=== PATIENT | male | born 1965 | race Two or more races ===

== ENCOUNTER 2016-06-27 14:47 | Emergency (ER) | payer MEDICARE ==
--- NOTE | ~2016-06-27 | ER ---
PATIENT'S NAME: LUIS OVERTON [facility] AGE: 51 Y [address] ROOM: [place] [address] LOCATION: ED ADMIT DATE: 06/27/2016 ER/Outpatient Report DISCHARGE DATE: 06/27/2016 FAMILY PHYSICIAN: , NO ATTENDING PHYSICIAN: Filiberto Lunsford Time of Arrival: 1447 hours. Time of Evaluation: 1447 hours. CHIEF COMPLAINT: Chest pain. HISTORY OF PRESENT ILLNESS: The patient is a 51-year-old male who presents to the emergency department today with a chief complaint of chest pain. He reports this started at 7 p.m. last night. It is a pinching-type pain on the left side of his chest. There is no shortness of breath. He does report he feels like his lips are dry. He is not having any nasal congestion and nasal drainage. He does have a nonproductive cough. Denies any fevers, does have some chills, does have some nausea. No vomiting. Denies any radiation of this chest pain. No ripping or tearing sensation. He is visiting his daughter from [place]. He reports he is diabetic, but has not been taking his medicines. PAST MEDICAL HISTORY: Igk-nrhreei-nbicxdihf diabetes, hypertension, gastroparesis. PAST SURGICAL HISTORY: Colonoscopy and endoscopy. SOCIAL HISTORY: The patient denies any tobacco use. Reports occasional alcohol use. Denies illicit drug use. ALLERGIES: NO KNOWN DRUG ALLERGIES. MEDICATIONS: 1. Omeprazole, he is supposed to be on diabetic. 2. Medications, but he has not seen his doctor to get his medications refilled. PRIMARY CARE DOCTOR: In [place]. ROS: PATIENT'S NAME: LUIS OVERTON [facility] AGE: 51 Y [address] ROOM: [place] [address] LOCATION: ED ADMIT DATE: 06/27/2016 ER/Outpatient Report DISCHARGE DATE: 06/27/2016 FAMILY PHYSICIAN: PHYSICIAN, MELODY ATTENDING PHYSICIAN: Filiberto Lunsford All systems are reviewed by myself and are negative with the exception of those discussed in HPI and past medical history. PHYSICAL EXAMINATION: VITAL SIGNS: Weight 81.3 kg, blood pressure 157/95, pulse 84, respiratory rate 18, temperature 97.7, oxygen saturation 99% on room air. GENERAL: The patient is a 51-year-old male, appears stated age, in no acute distress at this time. HEENT: Head: Normocephalic, atraumatic. Pupils are equal, round, and reactive to light and accommodating. Mucous membranes are moist. NECK: Supple. There is no nuchal rigidity. CARDIOVASCULAR: Regular rate and rhythm. No murmurs, rubs, or gallops. LUNGS: Clear to auscultation bilaterally. No wheezes, rales, or rhonchi. ABDOMEN: Soft, nontender, and nondistended. No rebound, rigidity, or guarding. MUSCULOSKELETAL: The patient moves all 4 extremities. SKIN: Warm and dry. LABORATORY DATA AND X-RAYS: EKG is obtained, is interpreted by myself at 1509 hours, shows sinus rhythm with a rate of 80, left axis deviation, normal interval. No ST elevation, ST depression, T-wave inversions. A 2-view chest x-ray shows no acute process. CBC is normal. D-dimer is normal. Coags are normal. Magnesium is normal. CK is normal. CK-MB is unremarkable. Troponin was normal. CMP is unremarkable except for glucose 464. LFTs are normal. BNP is normal. Repeat 2-hour EKG shows sinus rhythm with a rate of 60, left axis deviation, normal interval. No ST elevation, ST depression, or T-wave inversions. A 2-hour cardiac enzymes are normal. IMPRESSION: 1. Chest pain, unclear etiology. Suspect musculoskeletal. 2. Elevated glucose and medical noncompliance. 3. Initial visit. EMERGENCY DEPARTMENT COURSE: The patient was brought back to the examination room. Seen and evaluated by myself. IV is established. Laboratory analysis and imaging are obtained as described above. The patient's CO2 is unremarkable, normal. He does have elevated glucose. We did give the patient 8 units of insulin subcutaneous. He was given a liter of normal saline. He was given 4 mg of Zofran, 50 mg of Toradol, as well as a GI cocktail. This resulted in improvement in the patient's symptoms. The patient is chest pain-free. He does have tenderness to palpation along the anterior chest wall on the left side. His 2-hour cardiac enzymes and EKG are unchanged. I do feel he is safe for outpatient evaluation. I have written a prescription for metformin for him as he does PATIENT'S NAME: LUIS OVERTON [facility] AGE: 51 Y [address] ROOM: [place] [address] LOCATION: [facility] ADMIT DATE: 06/27/2016 ER/Outpatient Report DISCHARGE DATE: 06/27/2016 FAMILY PHYSICIAN: PHYSICIAN, NO ATTENDING PHYSICIAN: Filiberto Lunsford not have his prescriptions here. He does report he has taken this in the past. I have discussed. I would like him to follow up with the clinic in 2-3 days for further evaluation and treatment. We discussed the different options here in [place]. DISPOSITION: The patient is discharged home in good condition. DO GRECIA RAI/modl /[id number] d: 06/28/16804 t: 07/07/16 192, OUTPATIENT REPORT
[2016-06-27 15:11] LABS: BASOPHIL % 0.7 %; EOSINOPHIL # 0.2 K/uL (0.0-0.5); HEMATOCRIT 41.9 % (37.0-53.0); HEMOGLOBIN 14.3 g/dL (12.0-17.0); IMMATURE GRANULOCYTE % 0.2 %; LYMPHOCYTE # 1.1 K/uL (0.8-4.0); LYMPHOCYTE % 23.5 %; MCH 29.7 pg (27.0-34.0); MCHC 34.1 gm/dL (32.0-36.5); MCV 86.9 fl (83.0-98.0); MONOCYTE # 0.4 K/uL (0.0-1.0); MPV 11.7 fl (9.4-12.4); NEUTROPHIL # (ANC) 2.9 K/uL (1.4-9.0); NEUTROPHIL % 63.6 %; NRBC % 0 /100WBC (0-0.00); PLATELET COUNT 167 K/uL (150-450); RBC 4.82 M/uL (4.00-6.00); RDW-CV 12.4 % (11.9-14.6); WBC 4.5 K/uL (4.0-11.0)
[2016-06-27 15:23] LABS: INR - (THERAPEUTIC) 0.9 (0.9-1.1); PROTIME 9.7 SECONDS (9.6-11.1); PTT 23 SECONDS (25-32)
[2016-06-27 15:30] LABS: ALBUMIN 3.7 gm/dL (3.5-5.0); ALK PHOS 68 IU/L (33-138); ALT 30 IU/L (12-78); ANION GAP 11.1 (10.0-19.0); AST 16 IU/L (10-40); BLOOD UREA NITROGEN 17 mg/dL (6-24); CALCIUM 8.5 mg/dL (8.5-10.5); CHLORIDE 98 mMol/L (96-110); CO2 28 mMol/L (22-32); CPK 226 IU/L (35-332); CREATININE 0.9 mg/dL (0.6-1.3); ESTIMATED GFR (MDRD EQUATION) > 60; MAGNESIUM 2.2 mg/dL (1.3-2.6); POTASSIUM 4.1 mMol/L (3.7-5.1); SODIUM 133 mMol/L (135-145); TOTAL BILIRUBIN 0.4 mg/dL (0.0-1.5); TOTAL PROTEIN 7.6 g/dL (6.0-8.4)
[2016-06-27 17:31] LABS: CPK 169 IU/L (35-332)
== END 2016-06-27 18:14 | disposition disaster alternative care site (69) ==
LOC: GMED 14:47
PROVIDERS: Emergency Medicine
DX: R07.9 Chest pain, unspecified (principal); E11.9 Type 2 diabetes mellitus without complications; I10 Essential (primary) hypertension; Z91.14 Patient's other noncompliance with medication regimen
CPT/HCPCS: J1885; J2405; J7030

== ENCOUNTER 2016-07-11 17:30 | Emergency (ER) | payer MEDICARE ==
--- NOTE | ~2016-07-11 | ER ---
PATIENT'S NAME: TIAN FRANCE [facility] AGE: 51 Y [address] ROOM: [place] [address] LOCATION: ED ADMIT DATE: 07/11/2016 ER/Outpatient Report DISCHARGE DATE: 07/11/2016 FAMILY PHYSICIAN: PHYSICIAN, NO ATTENDING PHYSICIAN: Renan Stephens TIME OF ARRIVAL: 1737 hours. TIME OF EXAM: 1737 hours. CHIEF COMPLAINT: Back pain. HISTORY OF PRESENT ILLNESS: The patient states he has a burning-type back pain across his lower back and flank area also past. It started on both sides yesterday, but today it has kind of settled into the right flank area. It is a burning sensation and kind of goes down into the right hip and legs. He states he has had problems like this before when he has had gastritis. He states that he has had some chronic problems with GI tract. Does not have any pain with urination, but does sometimes have pain with stooling. He has not noticed any blood. ALLERGIES: HE HAS NO KNOWN ALLERGIES. CURRENT MEDICATIONS: Current medications are on his chart and reviewed by me. PAST MEDICAL HISTORY: Gastritis, stroke, and tpq-mdwynic-uzaooglnw diabetes. PAST SURGERIES: Multiple colonoscopies and endoscopies. SOCIAL HISTORY: He is here visiting family. Denies use of tobacco, drugs, or alcohol. REVIEW OF SYSTEMS: All negative other than those mentioned in the HPI. PHYSICAL EXAMINATION: VITAL SIGNS: He weighed 78 kg, blood pressure is 97/69, pulse of 92, respirations 16, temp of 99.3, and O2 sat is 96% on room air. PATIENT'S NAME: TIAN FRANCE [facility] AGE: 51 Y [address] ROOM: [place] [address] LOCATION: [facility] ADMIT DATE: 07/11/2016 ER/Outpatient Report DISCHARGE DATE: 07/11/2016 FAMILY PHYSICIAN: PHYSICIAN, NO ATTENDING PHYSICIAN: Renan Stephens GENERAL: He is awake, alert, and oriented x4. SKIN: [place], warm, and dry. RESPIRATIONS: Even and nonlabored. Lung sounds are clear throughout. HEART: Regular rate and rhythm. ABDOMEN: Soft, nondistended. Bowel sounds are present. He is tender in the right flank area. He walks in with a steady even gait. LABORATORY DATA: Clean-catch UA was obtained. It does show some blood. I did CT scan of the abdomen and pelvis, stone protocol, radiologist reports it is within normal limits. CBC shows a white count of 7.6, hemoglobin is 14.4 with hematocrit of 41.6. Chem panel: Sodium is 136, potassium is 4.2, chloride 106, glucose is 248, BUN is 22 with a creatinine 0.7, and amylase is 52 with a lipase of 388. EMERGENCY DEPARTMENT COURSE: The patient was given [place] 5/325 x2 tablets and Zofran 4 mg ODT. IMPRESSION: Back pain. PLAN: Home, rest, and fluids. He has [place] at home to take for pain. If his symptoms persist or worsen, he is to follow up with their primary provider in the next 2-3 days or return to the ER. He verbalized understanding. JERED LINDO APRN FOR MD CHRISTIANO PEARCE/ana /[id number] d: 07/12/16150 t: 07/20/16 1212, OUTPATIENT REPORT
[2016-07-11 18:05] LABS: BLOOD URINE 10 /UL (NEGATIVE); GLUCOSE URINE 1000 mg/dL (NEGATIVE); KETONE URINE 5 mg/dL (NEGATIVE); LEUKOCYTES URINE 25 /UL (NEGATIVE); NITRITE URINE NEGATIVE (NEGATIVE); PROTEIN URINE 100 mg/dL (NEGATIVE); TURBIDITY URINE 3+ (CLEAR); UROBILINOGEN URINE 4 mg/dL (NORMAL)
[2016-07-11 18:06] LABS: COLOR URINE AMBER (YELLOW)
[2016-07-11 18:15] LABS: BACTERIA URINE FEW (NEGATIVE); MUCUS URINE 3+ (NEGATIVE); RBC URINE 0-2 #/HPF (NEGATIVE); RENAL EPITH URINE 0-2 #/HPF (NEGATIVE)
[2016-07-11 18:16] LABS: SPERM URINE 0-2 #/HPF (NEGATIVE)
[2016-07-11 18:38] LABS: HEMATOCRIT 41.6 % (37.0-53.0); HEMOGLOBIN 14.4 g/dL (12.0-17.0); MCH 29.6 pg (27.0-34.0); MCHC 34.6 gm/dL (32.0-36.5); MCV 85.6 fl (83.0-98.0); MPV 11.8 fl (9.4-12.4); PLATELET COUNT 146 K/uL (150-450); RBC 4.86 M/uL (4.00-6.00); RDW-CV 12.4 % (11.9-14.6); WBC 7.6 K/uL (4.0-11.0)
[2016-07-11 18:58] LABS: ALBUMIN 3.1 gm/dL (3.5-5.0); ALK PHOS 53 IU/L (33-138); ALT 29 IU/L (12-78); ANION GAP 9.2 (10.0-19.0); AST 21 IU/L (10-40); BLOOD UREA NITROGEN 22 mg/dL (6-24); CHLORIDE 106 mMol/L (96-110); CO2 25 mMol/L (22-32); CREATININE 0.7 mg/dL (0.6-1.3); ESTIMATED GFR (MDRD EQUATION) > 60; POTASSIUM 4.2 mMol/L (3.7-5.1); SODIUM 136 mMol/L (135-145); TOTAL PROTEIN 6.6 g/dL (6.0-8.4)
[2016-07-11 19:00] LABS: CALCIUM 7.3 mg/dL (8.5-10.5); TOTAL BILIRUBIN 0.6 mg/dL (0.0-1.5)
[2016-07-11 19:05] LABS: ABSOLUTE NEUTROPHIL CT (ANC) 7.1 K/uL (1.4-9.0); LYMPHOCYTE # 0.1 K/uL (0.8-4.0); LYMPHOCYTE % 1 %; MONOCYTE # 0.3 K/uL (0.0-1.0); SEGMENTED NEUTROPHIL # 7.1 K/uL (1.4-9.0); SEGMENTED NEUTROPHIL % 94 %
== END 2016-07-11 19:32 | disposition disaster alternative care site (69) ==
LOC: GMED 17:30
PROVIDERS: Emergency Medicine; Nurse Practitioner Family
DX: M54.5 Low back pain (principal); E11.9 Type 2 diabetes mellitus without complications; Z79.84 Long term (current) use of oral hypoglycemic drugs

== ENCOUNTER 2016-09-20 00:59 | Emergency (ER) | payer MEDICARE ==
--- NOTE | ~2016-09-20 | ER ---
PATIENT'S NAME: TIAN FRANCE [facility] AGE: 51 Y [address] ROOM: [place] [address] LOCATION: ED ADMIT DATE: 09/20/2016 ER/Outpatient Report DISCHARGE DATE: 09/20/2016 FAMILY PHYSICIAN: PHYSICIAN, NO ATTENDING PHYSICIAN: Ravi Martinez Admission date and time are documented in the medical record. I saw the patient at 0110 hours. CHIEF COMPLAINT: Open wounds, feet and upper back. HISTORY OF PRESENT ILLNESS: This patient is a 51-year-old male who presents to the emergency room with a 1- week history of sores that have opened up on his right foot between his right great and second toe on the anterolateral midright lower leg and left inner upper proximal leg, left heel, and upper back. The patient is a non-insulin- dependent diabetic. He has a lot of scabs on most of the open lesions. Minimal drainage at this time. No documented fever. He has had some chills. Does not look toxic. He has some numbness and tingling in his right foot. HOME MEDICATIONS: See attached medication list. ALLERGIES: NONE. SOCIAL HISTORY: Nonsmoker. Occasional intake of alcohol. SIGNIFICANT PAST MEDICAL HISTORY: Celiac disease, CVA, hypertension, and ixu-yobccwk-pxrthwemr diabetes mellitus. OPERATIONS: None. REVIEW OF SYSTEMS: All systems reviewed by me are negative with the exception of those discussed in the history of present illness. PHYSICAL EXAMINATION: VITAL SIGNS: Temperature 97.6, pulse 92, and O2 sat on room air is 97%. SKIN: On examination, the patient has open sores and scabbed over open sores on his right dorsal aspect of his right foot in between his toes on the right PATIENT'S NAME: TIAN FRANCE [facility] AGE: 51 Y [address] ROOM: [place], [place] [address] LOCATION: ED ADMIT DATE: 09/20/2016 ER/Outpatient Report DISCHARGE DATE: 09/20/2016 FAMILY PHYSICIAN: PHYSICIAN, NO ATTENDING PHYSICIAN: Ravi Martinez foot, between the great toe and second toe, proximal anterolateral right lower leg, inner midproximal left upper leg, left heel, and midupper back. There is no redness, no red streaking, and no adenopathy. IMPRESSION: 1. Open infected sores, right foot, right lower leg, left upper leg, left heel, and midupper back plan. 2. Nkf-faqqzwf-pjfgaohio diabetes mellitus. 3. Hypertension. 4. Celiac disease. PLAN: The patient is dismissed home. Observation. Activity as tolerated. Bactrim Double Strength b.i.d. for 10 days. Bactroban ointment to be applied to the wounds 1 or 2 times a day. Keep wounds clean with mild soap and water daily to 2 times a day. Follow up with personal physician as needed. MD BONIFACIO KING/modl /[id number] d: 09/20/16605 t: 09/20/16 1811, OUTPATIENT REPORT
== END 2016-09-20 01:23 | disposition disaster alternative care site (69) ==
LOC: GMED 00:59
DX: S91.301A Unspecified open wound, right foot, initial encounter (principal); S81.801A Unspecified open wound, right lower leg, initial encounter; S71.102A Unspecified open wound, left thigh, initial encounter; S91.302A Unspecified open wound, left foot, initial encounter; S21.209A Unspecified open wound of unspecified back wall of thorax without penetration into thoracic cavity, initial encounter; L08.9 Local infection of the skin and subcutaneous tissue, unspecified; E11.9 Type 2 diabetes mellitus without complications; I10 Essential (primary) hypertension; K90.0 Celiac disease; Z79.84 Long term (current) use of oral hypoglycemic drugs; Z79.899 Other long term (current) drug therapy; Z86.73 Personal history of transient ischemic attack (TIA), and cerebral infarction without residual deficits; X58.XXXA Exposure to other specified factors, initial encounter